=== PATIENT | female | born 1965 | race Caucasian/White ===

== ENCOUNTER 2024-06-20 10:28 | Outpatient (OUT) | payer OTHER, SELFPAY ==
--- NOTE | 2024-06-20 | XR_ITS ---
The [address] [address] Patient Name: LAUREN WALTERS MRN: [id number] date: 1965 Sex: F Assigned Patient Location: Current Patient Location: Accession/Order Number: [id number] Exam Date: 06/20/2024 10:29 Report Date: 06/22/2024 04:30 At the request of: LYNNETTE MENDOZA Procedure: XR ankle LT min 3V PROCEDURE: XR ankle LT min 3V HISTORY: LEFT ANKLE PAIN COMPARISON: XR ankle left 09/15/2022 FINDINGS: BONES:Mechanical fusion of the ankle joint and hindfoot via intramedullary donna and locking screws. Spacer replacement of the talus. Stable ossification projecting cephalad from the lateral margin of distal tibia SOFT TISSUES:Stable area of soft tissue thickening anterior to distal tibia; possibly scarring. EFFUSION:None visible. OTHER: Negative. XR/XR ankle LT min 3V IMPRESSION: 1. Stable surgical changes of the left ankle without evidence of hardware failure or change in alignment. 2. Stable posttraumatic changes of the bones. No appreciable acute abnormality. Electronically authenticated by: LANDON VÁSQUEZ Date: 06/22/2024 04:30
== END 2024-06-20 10:29 | disposition home or self-care (01) ==
PROVIDERS: Visit Provider Podiatrist Foot & Ankle Surgery
DX: M25.572 Pain in left ankle and joints of left foot (principal); Z98.890 Other specified postprocedural states
CPT/HCPCS: 73610